=== PATIENT | female | born 1945 | race Two or more races ===

== ENCOUNTER 2017-08-13 10:03 | Outpatient (CLI) | payer OTHER ==
[~2017-08-13 10:03] MED LIST: ACTONEL35 MG; FLOVENT 110MCG7.9 GM IH; GABAPENTIN300 MG PO; MEDROL4 MG PO; MUCINEX DM TABL1 BOX PO; PROAIR HFA8.5 GM; SEPTRA DS TABLE1 TAB PO; SINGULAIR10 MG PO
== END 2017-08-13 12:25 | disposition home or self-care (01) ==
LOC: MAMO-SONO 10:03
DX: N64.51 Induration of breast (principal); N64.52 Nipple discharge; Z12.31 Encounter for screening mammogram for malignant neoplasm of breast; R10.2 Pelvic and perineal pain

== ENCOUNTER 2018-06-08 11:33 | Outpatient (CLI) | payer OTHER | END 2018-06-08 11:35 | disposition home or self-care (01) | LOC: NUCLEAR 11:33 | DX: M81.0 Age-related osteoporosis without current pathological fracture (principal) ==

== ENCOUNTER 2018-11-04 08:17 | Outpatient (CLI) | payer OTHER | END 2018-11-04 08:19 | disposition home or self-care (01) | LOC: MRI 08:17 | DX: R22.1 Localized swelling, mass and lump, neck (principal); R22.0 Localized swelling, mass and lump, head; Z13.0 Encounter for screening for diseases of the blood and blood-forming organs and certain disorders involving the immune mechanism | CPT/HCPCS: 70540 ==

== ENCOUNTER 2018-11-10 08:12 | Outpatient (CLI) | payer OTHER | END 2018-11-10 08:18 | disposition home or self-care (01) | LOC: SONOGRAMA 08:12 | DX: R59.9 Enlarged lymph nodes, unspecified (principal) ==

== ENCOUNTER → 2018-11-10 | Outpatient (CLI) | payer OTHER | END | disposition home or self-care (01) | LOC: RAD 08:44 | DX: R59.1 Generalized enlarged lymph nodes (principal) ==

== ENCOUNTER → 2018-12-14 | Outpatient (CLI) | payer OTHER | END | disposition home or self-care (01) | LOC: MAMO-SONO 07:41 | DX: Z12.31 Encounter for screening mammogram for malignant neoplasm of breast (principal); Z12.39 Encounter for other screening for malignant neoplasm of breast ==

== ENCOUNTER → 2018-12-26 | Outpatient (CLI) | payer OTHER | END | disposition home or self-care (01) | LOC: SONOGRAMA 07:45 | DX: R10.32 Left lower quadrant pain (principal) ==

== ENCOUNTER 2019-02-10 07:42 | Outpatient (CLI) | payer OTHER | END 2019-02-10 09:29 | disposition home or self-care (01) | LOC: EKG 07:42 | DX: I10 Essential (primary) hypertension (principal) ==

== ENCOUNTER → 2019-02-10 | Outpatient (CLI) | payer OTHER | END | disposition home or self-care (01) | LOC: TOM 07:45 | DX: C67.9 Malignant neoplasm of bladder, unspecified (principal) ==

== ENCOUNTER 2019-03-15 10:02 | Day surgery (SDC) | payer OTHER | END 2019-03-15 16:40 | disposition home or self-care (01) | LOC: CIR.AMB 10:02 | DX: C67.0 Malignant neoplasm of trigone of bladder (principal); C67.2 Malignant neoplasm of lateral wall of bladder; C67.4 Malignant neoplasm of posterior wall of bladder ==

== ENCOUNTER 2020-01-10 09:27 | Outpatient (CLI) | payer OTHER | END 2020-01-10 09:35 | disposition home or self-care (01) | LOC: MAMO-SONO 09:27 | PROVIDERS: ATTEND Obstetrics & Gynecology | DX: Z12.31 Encounter for screening mammogram for malignant neoplasm of breast (principal); N64.81 Ptosis of breast; N60.11 Diffuse cystic mastopathy of right breast; N60.12 Diffuse cystic mastopathy of left breast; N89.8 Other specified noninflammatory disorders of vagina ==

== ENCOUNTER 2020-03-07 09:41 | Emergency (ER) | payer OTHER ==
[~2020-03-07] VITALS: Ht 149.9 cm; Wt 39.0 kg
[2020-03-07] MEDS ORDERED: VALTREX1000 MG (10:27)
[2020-03-07] MEDS ORDERED: OSTERA TABLET1 EACH (10:28)
[2020-03-07] MEDS ORDERED: ACTONEL35 MG (10:29)
== END 2020-03-07 13:40 | disposition home or self-care (01) ==
LOC: ER 09:41
DX: G45.8 Other transient cerebral ischemic attacks and related syndromes (principal); R53.1 Weakness

== ENCOUNTER 2020-04-04 08:04 | Outpatient (CLI) | payer OTHER | END 2020-04-04 08:18 | disposition home or self-care (01) | LOC: NUCLEAR 08:04 | PROVIDERS: ATTEND Psychiatry & Neurology Clinical Neurophysiology | DX: I63.30 Cerebral infarction due to thrombosis of unspecified cerebral artery (principal) | CPT/HCPCS: 70551 ==

== ENCOUNTER → 2020-04-04 | Outpatient (CLI) | payer OTHER ==
[~2020-04-04] MED LIST changes: +OSTERA TABLET1 EACH; +VALTREX1000 MG
== END | disposition home or self-care (01) ==
LOC: MRI 08:53
PROVIDERS: ATTEND Psychiatry & Neurology Clinical Neurophysiology
DX: I63.30 Cerebral infarction due to thrombosis of unspecified cerebral artery (principal)
CPT/HCPCS: 70551

== ENCOUNTER 2020-10-30 08:44 | Outpatient (CLI) | payer OTHER | END 2020-10-30 08:53 | disposition home or self-care (01) | LOC: SONOGRAMA 08:44 → MAMO-SONO 08:45 → SONOGRAMA 08:53 | PROVIDERS: ATTEND Internal Medicine Cardiovascular Disease | DX: C67.8 Malignant neoplasm of overlapping sites of bladder (principal) ==

== ENCOUNTER 2021-01-15 10:23 | Outpatient (CLI) | payer OTHER | END 2021-01-15 10:30 | disposition home or self-care (01) | LOC: MAMO-SONO 10:23 | PROVIDERS: ATTEND Obstetrics & Gynecology | DX: N64.51 Induration of breast (principal); Z12.31 Encounter for screening mammogram for malignant neoplasm of breast; E27.49 Other adrenocortical insufficiency ==

== ENCOUNTER 2021-01-22 13:56 | Outpatient (CLI) | payer OTHER | END 2021-01-22 13:58 | disposition home or self-care (01) | LOC: NUCLEAR 13:56 | PROVIDERS: ATTEND Obstetrics & Gynecology | DX: M81.0 Age-related osteoporosis without current pathological fracture (principal); Z13.850 Encounter for screening for traumatic brain injury ==

== ENCOUNTER 2021-04-04 08:12 | Outpatient (CLI) | payer OTHER | END 2021-04-04 08:17 | disposition home or self-care (01) | LOC: NUCLEAR 08:12 | PROVIDERS: ATTEND Internal Medicine Cardiovascular Disease | DX: R07.89 Other chest pain (principal) ==

== ENCOUNTER 2021-05-19 08:00 | Outpatient (CLI) | payer OTHER | END 2021-05-19 08:30 | disposition home or self-care (01) | LOC: PPH VACUNA 08:00 | PROVIDERS: ATTEND Emergency Medicine Pediatric Emergency Medicine | DX: Z23 Encounter for immunization (principal) ==

== ENCOUNTER 2021-09-29 08:00 | Outpatient (CLI) | payer OTHER | END 2021-09-29 08:30 | disposition home or self-care (01) | LOC: PPH VACUNA 08:00 | PROVIDERS: ATTEND Emergency Medicine Pediatric Emergency Medicine | DX: Z23 Encounter for immunization (principal) ==

== ENCOUNTER 2021-12-16 08:29 | Outpatient (CLI) | payer OTHER | END 2021-12-16 08:33 | disposition home or self-care (01) | LOC: RAD 08:29 | PROVIDERS: ATTEND Internal Medicine Cardiovascular Disease | DX: M25.512 Pain in left shoulder (principal) ==

== ENCOUNTER 2022-04-01 08:09 | Outpatient (CLI) | payer OTHER | END 2022-04-01 08:19 | disposition home or self-care (01) | LOC: PPH VACUNA 08:09 | PROVIDERS: ATTEND Emergency Medicine Pediatric Emergency Medicine | DX: Z23 Encounter for immunization (principal) ==

== ENCOUNTER 2022-07-14 10:40 | Outpatient (CLI) | payer OTHER | END 2022-07-14 10:43 | disposition home or self-care (01) | LOC: RAD 10:40 | PROVIDERS: ATTEND Internal Medicine Cardiovascular Disease | DX: M54.50 Low back pain, unspecified (principal); M25.551 Pain in right hip ==

== ENCOUNTER 2022-07-30 08:44 | Outpatient (CLI) | payer OTHER | END 2022-07-30 08:51 | disposition home or self-care (01) | LOC: TOM 08:44 | PROVIDERS: ATTEND Urology | DX: N28.1 Cyst of kidney, acquired (principal); C67.9 Malignant neoplasm of bladder, unspecified ==

== ENCOUNTER 2022-08-24 08:32 | Outpatient (CLI) | payer OTHER ==
[~2022-08-24 08:32] MED LIST changes: +METHOCARBAMOL500 MG PO
== END 2022-08-24 08:38 | disposition home or self-care (01) ==
LOC: MRI 08:32
PROVIDERS: ATTEND Physical Medicine & Rehabilitation
DX: M25.551 Pain in right hip (principal); T14.90XA Injury, unspecified, initial encounter
CPT/HCPCS: 73721

== ENCOUNTER 2022-10-14 08:11 | Emergency (ER) | payer OTHER ==
[~2022-10-14] VITALS: Ht 149.9 cm; Wt 36.7 kg
== END 2022-10-14 12:35 | disposition home or self-care (01) ==
LOC: ER 08:11
DX: S89.82XA Other specified injuries of left lower leg, initial encounter (principal); S89.81XA Other specified injuries of right lower leg, initial encounter; W18.39XA Other fall on same level, initial encounter; Y93.89 Activity, other specified; Y92.480 Sidewalk as the place of occurrence of the external cause; S69.81XA Other specified injuries of right wrist, hand and finger(s), initial encounter

== ENCOUNTER 2022-10-27 11:39 | Outpatient (CLI) | payer OTHER | END 2022-10-27 11:43 | disposition home or self-care (01) | LOC: MAMO-SONO 11:39 | PROVIDERS: ATTEND Obstetrics & Gynecology | DX: Z12.31 Encounter for screening mammogram for malignant neoplasm of breast (principal); Z12.39 Encounter for other screening for malignant neoplasm of breast; N95.0 Postmenopausal bleeding ==

== ENCOUNTER 2022-12-08 08:52 | Outpatient (CLI) | payer OTHER | END 2022-12-08 08:57 | disposition home or self-care (01) | LOC: SONOGRAMA 08:52 | PROVIDERS: ATTEND Internal Medicine Cardiovascular Disease | DX: E87.1 Hypo-osmolality and hyponatremia (principal) ==

== ENCOUNTER 2023-09-16 14:34 | Outpatient (CLI) | payer OTHER | END 2023-09-16 14:35 | disposition home or self-care (01) | LOC: NUCLEAR 14:34 | PROVIDERS: ATTEND Orthopaedic Surgery | DX: M81.0 Age-related osteoporosis without current pathological fracture (principal) ==

== ENCOUNTER 2023-10-05 07:08 | Outpatient (CLI) | payer OTHER | END 2023-10-05 07:23 | disposition home or self-care (01) | LOC: NUCLEAR 07:08 | PROVIDERS: ATTEND Internal Medicine | DX: I20.9 Angina pectoris, unspecified (principal); I11.9 Hypertensive heart disease without heart failure | CPT/HCPCS: 78452; 93017; A9500; J0153 ==

== ENCOUNTER 2023-10-07 12:26 | Outpatient (CLI) | payer OTHER | END 2023-10-07 12:37 | disposition home or self-care (01) | LOC: TOM 12:26 | PROVIDERS: ATTEND Urology | DX: R31.0 Gross hematuria (principal) ==

== ENCOUNTER 2024-01-21 09:38 | Outpatient (CLI) | payer OTHER ==
[~2024-01-21 09:38] MED LIST changes: +DUI500 PO; +ELIQUIS2.5 MG PO; +NORVASC5 MG PO; +PERCOCET 5-3251 EACH PO; +SYMBICORT 16010.2 GM IH
== END 2024-01-21 09:47 | disposition home or self-care (01) ==
LOC: RAD 09:38
PROVIDERS: ATTEND Internal Medicine Cardiovascular Disease
DX: M25.552 Pain in left hip (principal); S79.912A Unspecified injury of left hip, initial encounter; S29.9XXA Unspecified injury of thorax, initial encounter

== ENCOUNTER 2024-06-09 15:15 | Outpatient (CLI) | payer OTHER | END 2024-06-09 15:20 | disposition home or self-care (01) | LOC: RAD 15:15 | PROVIDERS: ATTEND Internal Medicine Cardiovascular Disease | DX: M25.551 Pain in right hip (principal); R07.89 Other chest pain ==

== ENCOUNTER 2024-08-12 10:01 | Outpatient (CLI) | payer OTHER | END 2024-08-12 10:08 | disposition home or self-care (01) | LOC: RAD 10:01 | PROVIDERS: ATTEND Internal Medicine Cardiovascular Disease | DX: M54.50 Low back pain, unspecified (principal) ==

== ENCOUNTER 2024-12-04 14:14 | Outpatient (CLI) | payer OTHER | END 2024-12-04 14:18 | disposition home or self-care (01) | LOC: TOM 14:14 | PROVIDERS: ATTEND General Practice | DX: M54.9 Dorsalgia, unspecified (principal); S22.060A Wedge compression fracture of T7-T8 vertebra, initial encounter for closed fracture ==

== ENCOUNTER 2024-12-26 07:55 | Outpatient (CLI) | payer OTHER | END 2024-12-26 08:03 | disposition home or self-care (01) | LOC: MRI 07:55 | DX: S32.040A Wedge compression fracture of fourth lumbar vertebra, initial encounter for closed fracture (principal) | CPT/HCPCS: 72146 ==

== ENCOUNTER 2025-05-21 15:19 | Outpatient (CLI) | payer OTHER | END 2025-05-21 15:21 | disposition home or self-care (01) | LOC: MAMO-SONO 15:19 | PROVIDERS: ATTEND Obstetrics & Gynecology | DX: N04.4 Nephrotic syndrome with diffuse endocapillary proliferative glomerulonephritis (principal); R10.32 Left lower quadrant pain; Z12.31 Encounter for screening mammogram for malignant neoplasm of breast ==